=== PATIENT | male | born 1945 | race Caucasian/White ===

== ENCOUNTER 2020-03-06 11:46 | Emergency (ER) | payer MEDICARE ==
--- NOTE | 2020-03-06 12:16 | ED ---
Recheck HPI - General Chief Complaint: Recheck/Abnormal Lab/Rx Stated Complaint: Fever, bodyaches Time Seen by Provider: 03/06/20 12:08 Source: patient, RN notes reviewed Mode of arrival: ambulatory Limitations: no limitations - History of Present Illness Initial Comments: 74-year-old male presents emergency Department with chief complaint of covid exposure. 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 Patient states he does sense of taste and smell. Patient states he feels achy no cough or shortness breath or chest pain no fevers or chills. Patient denies any other complaints. Patient has no significant lung disease. Patient states he just wants to be checked. - Related Data Allergies Allergy/AdvReac Type Severity Reaction Status Date / Time No Known Allergies Allergy Verified 03/06/20 11:55 Review of Systems ROS Statement: Those systems with pertinent positive or pertinent negative responses have been documented in the HPI. ROS Other: All systems not noted in ROS Statement are negative. Past Medical History Past Medical History: No Reported History History of Any Multi-Drug Resistant Organisms: None Reported Past Surgical History: Orthopedic Surgery Past Psychological History: Anxiety Smoking Status: Never smoker Past Alcohol Use History: Occasional Past Drug Use History: None Reported General Exam Limitations: no limitations General appearance: alert, in no apparent distress Head exam: Present: atraumatic, normocephalic, normal inspection Eye exam: Present: normal appearance, PERRL, EOMI. Absent: scleral icterus, conjunctival injection, periorbital swelling ENT exam: Present: normal exam, normal oropharynx, mucous membranes moist Neck exam: Present: normal inspection, full ROM. Absent: tenderness, meningismus, lymphadenopathy Respiratory exam: Present: normal lung sounds bilaterally. Absent: respiratory distress, wheezes, rales, rhonchi, stridor Cardiovascular Exam: Present: regular rate, normal rhythm, normal heart sounds. Absent: systolic murmur, diastolic murmur, rubs, gallop, clicks Neurological exam: Present: alert, oriented X3, CN II-XII intact Skin exam: Present: warm, dry, intact, normal color. Absent: rash Course Vital Signs 03/06/20 11:52 Temperature 98.7 F Pulse Rate 71 Respiratory 18 Rate Blood Pressure 147/84 O2 Sat by Pulse 98 Oximetry Medical Decision Making - Medical Decision Making X-ray does not show an acute infiltrates. Patient was tested for chronic virus pending test results. Patient will be discharged in stable condition return parameters were discussed. Patient will self quarantining Disposition Clinical Impression: Exposure to COVID-19 virus Disposition: HOME SELF-CARE Condition: Stable Instructions (If sedation given, give patient instructions): Upper Respiratory Infection (ED) Additional Instructions: Please return to the Emergency Department if symptoms worsen or any other concerns. Is patient prescribed a controlled substance at d/c from ED?: No Referrals: Caio Foreman MD [Primary Care Provider] - 1-2 days Time of Disposition: 13:01
--- NOTE | 2020-03-06 12:36 | XR ---
EXAMINATION TYPE: XR chest 2V DATE OF EXAM: 03/06/2020 COMPARISON: NONE HISTORY: Cough. TECHNIQUE: Frontal and lateral views of the chest are obtained. FINDINGS: There is background chronic parenchymal change bilaterally without suspicious focal air sp rajani opacity, pleural effusion, or pneumothorax seen. The cardiac silhouette size is within normal li mits. Some multilevel spurring in the thoracic spine is redemonstrated. IMPRESSION: Chronic changes without suspicious acute infiltrate.
[2020-03-06 13:17] VITALS: BP 147/88; PULSE 75; RESP 20; TEMP 98.3
== END 2020-03-06 13:16 | disposition home or self-care (01) ==
LOC: EC 11:46
DX: R52 Pain, unspecified (principal); Z20.828 Contact with and (suspected) exposure to other viral communicable diseases
CPT/HCPCS: 71046; 99283; U0003